=== PATIENT | male | born 1935 | race Caucasian/White ===

== ENCOUNTER → 2018-06-21 | Outpatient (CLI) | payer MEDICARE, OTHER ==
--- NOTE | 2018-06-21 13:02 | Diagnostic Imaging Report ---
PROCEDURE: US left lower extremity venous. TECHNIQUE: Multiple real-time grayscale images were obtained over the left lower extremity in various projections. Additional duplex Doppler and color Doppler images were also obtained. INDICATION: Left lower extremity pain. FINDINGS: There is no evidence of left lower extremity DVT. Left lower extremity deep venous system shows normal compressibility with normal response to augmentation and Valsalva. No fluid collection or mass is detected. IMPRESSION: No evidence of left lower extremity DVT. Dictated by: Dictated on workstation # [id number]
--- NOTE | 2018-06-21 13:47 | Diagnostic Imaging Report ---
PROCEDURE: US Bilateral lower extremity arterial. TECHNIQUE: Multiple real-time grayscale images are obtained through both lower extremity arterial systems with color Doppler imaging and color Doppler spectral analysis. INDICATION: Claudication. FINDINGS: Atherosclerotic plaque is identified throughout both lower extremity arterial systems. The right common femoral artery demonstrates normal velocity and biphasic waveforms. The proximal right SFA is biphasic; however, the mid and distal right SFA is monophasic. Popliteal on the right is monophasic as well. Peroneal trunk as well as the right [employer] is monophasic. On the left, there are triphasic waveforms in the common femoral artery. However, the proximal, mid and distal left SFA are monophasic. There is some velocity elevation in the distal left SFA reaching 164 cm/s. Popliteal artery is monophasic. There are monophasic waveforms in the peroneal trunk and dorsalis pedis. Only minimal flow in the posterior tibial artery at the ankle is seen. No fluid collections are identified. IMPRESSION: Diffuse bilateral atherosclerotic changes with primarily biphasic and monophasic flow, described above. There is some velocity elevation in the distal left SFA which could indicate a focal stenosis. Only trace flow is identified in the left posterior tibial artery at the ankle. Dictated by: Dictated on workstation # [id number]
== END ==
LOC: RAD FS 10:24
PROVIDERS: ATTEND Family Medicine
DX: I70.203 Unspecified atherosclerosis of native arteries of extremities, bilateral legs (principal)
CPT/HCPCS: 93925

== ENCOUNTER → 2020-05-28 | Outpatient (CLI) | payer OTHER ==
--- NOTE | 2020-05-28 15:52 | Diagnostic Imaging Report ---
EXAMINATION: PA and lateral chest at 2:44 p.m. INDICATION: Chest wall pain. There are no prior studies available for comparison. There is a dense alveolar/interstitial infiltrate involving the right midlung. I suspect this is primarily in the anterior segment of the right upper lobe. Most likely this abnormal parenchymal density is related to pneumonia/atelectasis. However the right hilum does seem somewhat prominent and the possibility that there is an underlying neoplastic mass in this region should be considered. There may also be a small amount of pneumonia/atelectasis in the right lung base and there is a small right pleural effusion as well. Patchy left lower lobe atelectasis/infiltrate is also suspected. The heart size is within normal limits. The mediastinum is not widened. The osseous structures are intact. IMPRESSION: There is a prominent area of pneumonia/atelectasis involving the right midlung. The possibility that there is an underlying neoplastic mass in this area should also be considered. CT of the chest would be recommended for further study. If the CT chest exam is not performed, then a short-term (24 to 48-hour) follow-up plain film examination of the chest should be obtained. Dictated by: Dictated on workstation # [id number]
== END ==
LOC: RAD FS 14:26
PROVIDERS: ATTEND Family Medicine
DX: R07.89 Other chest pain (principal); R63.4 Abnormal weight loss
CPT/HCPCS: 71046

== ENCOUNTER → 2020-06-04 | Outpatient (CLI) | payer MEDICARE, OTHER ==
[~2020-06-04] MED LIST: CATHETER FLUSH 10 ML SYR IV PRN; HOLD METFORMIN - RECEIVED CONTRAST 20 ML VIAL IV SCH; IOHEXOL 350 MG/ML 100 ML (OMNIPAQUE 350) VIAL IV ONE; NS 100 ML (IVPB) BAG IV ONE
--- NOTE | 2020-06-04 15:45 | Diagnostic Imaging Report ---
PROCEDURE: CT head without contrast. TECHNIQUE: Multiple contiguous axial images were obtained through the brain without the use of intravenous contrast. Auto Exposure Controls were utilized during the CT exam to meet ALARA standards for radiation dose reduction. INDICATION: Altered mental status. Possible infection. Confusion. COMPARISON: None FINDINGS: Advanced generalized cerebral and cerebellar parenchymal volume loss. 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 No CT evidence of an acute territorial infarction. No intracranial hemorrhage, mass effect, hydrocephalus or extra-axial fluid collections. Osseous structures are intact. Visualized paranasal sinuses and mastoids are clear. IMPRESSION: 1. No acute intracranial CT findings. 2. Chronic infarct in the right frontal lobe. 3. Advanced generalized parenchymal volume loss. Dictated by: Dictated on workstation # [id number]
--- NOTE | 2020-06-04 16:25 | Diagnostic Imaging Report ---
PROCEDURE: CT abdomen and pelvis with and without contrast. TECHNIQUE: Precontrast acquisitions were acquired through the abdomen and pelvis. Multiple contiguous axial images were obtained through the abdomen and pelvis after the administration of intravenous contrast. Auto Exposure Controls were utilized during the CT exam to meet ALARA standards for radiation dose reduction. INDICATION: Infection, confusion. FINDINGS: There is an infiltrate in the right lower lobe as well as a small right pleural effusion nonloculated. There is a low-density nodule which appears solid in the right hepatic lobe at the dome measuring 2.4 cm. The gallbladder and adrenals are negative. The spleen is negative. The pancreas is unremarkable. The kidneys are unobstructed. There is no small or large bowel obstruction. No ascites, abscess, hematoma or acute fluid collection. No pneumatosis or free air. Bony structures are nonacute. There is aortic atherosclerotic disease. The air-containing appendix is visualized and normal. There is no diverticulitis. There is no abdominal or pelvic mesenteric or retroperitoneal lymphadenopathy. IMPRESSION: 1. Suspicion for infiltrate in the right lower lobe, a small right pleural effusion. 2. Etiology indeterminate. Right lobe liver mass does not have features of atypical hemangioma. If priors are not available to confirm long-term stability consider further evaluation with hepatic protocol and an abdominal MRI versus a 3-[address] follow-up. 3. Unobstructed urinary tracts. Normal appendix. No inflammatory process or infectious findings in the abdomen or pelvis. Dictated by: Dictated on workstation # [id number]
== END ==
LOC: RAD FS 13:30
PROVIDERS: ATTEND Family Medicine
DX: I63.9 Cerebral infarction, unspecified (principal); A49.9 Bacterial infection, unspecified; R07.9 Chest pain, unspecified; R63.4 Abnormal weight loss
CPT/HCPCS: 70450; 74178